=== PATIENT | female | born 2000 | race Hispanic/Latino ===

== ENCOUNTER 2019-04-30 02:08 | Inpatient (IN) | payer OTHER ==
[2019-04-30] VITALS (34 sets, daily range): BP systolic 108–160; BP diastolic 60–96
[~2019-04-30] VITALS: Ht 157.5 cm; Wt 63.0 kg
[2019-04-30 03:58] LABS: HEMATOCRIT 39.9 % (36.0-47.0); HEMOGLOBIN 13.3 g/dl (12.0-15.5); MEAN CORPUSCULAR HEMOGLOBIN 30.6 pg (27.0-33.0); MEAN CORPUSCULAR HGB CONC 33.3 g/dl (32.0-36.5); MEAN CORPUSCULAR VOLUME 91.9 fl (80.0-96.0); PLATELET COUNT, AUTOMATED 179 10^3/uL (150-450); RED BLOOD COUNT 4.34 10^6/uL (4.00-5.40); WHITE BLOOD COUNT 10.3 10^3/uL (4.0-10.0)
[2019-04-30 04:14] LABS: TOTAL PROTEIN,RANDOM URINE 38.6 MG/DL (0.0-12.0)
[2019-04-30 05:16] LABS: ALT/SGPT 200 U/L (12-78); BILIRUBIN,TOTAL 0.3 MG/DL (0.2-1.0); CREATININE FOR GFR 0.74 MG/DL (0.55-1.30); LDH LACTATE DEHYDROGENASE 379 U/L (84-246)
[2019-04-30] MEDS ORDERED: PENICILLIN G POTASSIUM IV 5 MU in D5W MINI-BAG PLUS 100 ML IV STA (06:49)
[2019-04-30] MEDS ORDERED: LACTATED RINGER'S 1000 ML IV STA (06:49)
[2019-04-30] MEDS ORDERED: OXYTOCIN DRIP 30 UNITS in IV 1 EA IV SCH ×2 (07:00→16:00)
--- NOTE | 2019-04-30 07:27 | HPEPDOC ---
Obstetrical History & Physical General Date of Admission 04/30/19 History of Present Illness Iva is a 18yo with SIUP at 39w4d by lmp c/w 13wk u/s who presented to triage around 0230 with complaint of vaginal bleeding after intercourse. In triage she was noted to have elevated bp's, so pre-E labs were ordered which were abnormal, specifically liver enzymes (AST 267, ALT 200) and urine protein/creatinine (0.44). Her bp normalized in triage and remains normotensive currently, but given the abnormalities of labs and elevated bp on presentation, I am making the diagnosis of pre-eclampsia and proceeding with IOL. She has been having fairly regular ctx but they are not too uncomfortable yet. No LOF. Good movement. No f/c/n/v. No vision changes, headache, RUQ pain or SOB. 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 ABDOMEN: Gravid and non-tender to touch. FETUS: Is vertex (VTX) by sterile vaginal examination (SVE) EXTREMITIES: No edema of BLE Vital Signs/I&O Vital Signs Date Time Temp Pulse Resp B/P (MAP) Pulse Ox O2 Delivery O2 Flow Rate FiO2 04/30/19 05:06 100.0 82 126/75 (92) Laboratory Data 24H LABS Laboratory Tests 2 04/30/19 03:21: Urine Random Creatinine 86.0, Urine Random Total Protein 38.6H 04/30/19 03:38: Urine Color YELLOW, Urine Appearance HAZY, Urine pH 6.0, Urine Specific [place] 1.016, Urine Protein NEGATIVE, Urine Glucose (UA) NEGATIVE, Urine Ketones NEGATIVE, Urine Blood 1+H, Urine Nitrite NEGATIVE, Urine Bilirubin NEGATIVE, Urine Urobilinogen 0.2, Urine Leukocyte Esterase 3+H, Urine WBC (Auto) 4H, Urine RBC (Auto) 11H, Urine Hyaline Casts (Auto) 0, Urine Bacteria (Auto) 1+H, Urine Squamous Epithelial Cells 4, Urine Sperm (Auto) 04/30/19 03:46: Nucleated Red Blood Cells % (auto) 0.0, Uric Acid 6.0, Total Bilirubin 0.3, Aspartate Amino Transf (AST/SGOT) 267H, Alanine Aminotransferase (ALT/SGPT) 200H, Lactate Dehydrogenase 379H CBC/BMP Laboratory Tests 04/30/19 03:46 Microbiology Microbiology 04/30/19 Urine Culture, Received Pending Pertinent Laboratoy Data Blood Type: O+ RBC Antibody Screen: Negative HIV: Negative Hepatitis B: Negative Hepatitis C: Unknown Rapid Plasma Reagin: Nonreactive Rubella: Nonreactive Varicella: Nonreactive Chlamydia/Gonorrhea: Positive (with negative test of cure ) Group B Streptococcus: Positive Cystic Fibrosis: Negative Glucose Tolerance Test: 95 Anatomy Ultrasound Ultrasound Date: Dec 28, 2018 Placenta Location: Anterior Normal Anatomy: Yes Placenta Previa: No Steroid Therapy Steroid Therapy: No Vaginal Examination Dilation: 3 cm Effacement: 80% Station: -1 Cervical Consistency: Soft Cervical Position: Posterior (very) Presentation: Cephalic presentation Assessment Heart Rate (FHR): 140 Variability: Moderate Accelerations: Positive Decelerations: None Tocometer Contractions: Yes Frequency: regular, every 2-5 min. Duration: greater than 60 seconds Strength: palpated as mild Assessment/Plan Assessment Iva is a 18yo with SIUP at 39w4d by lmp c/w 13wk u/s who presented to [facility] around 0230 with complaint of vaginal bleeding after intercourse. In triage she was noted to have elevated bp's, so pre-E labs were ordered which were abnormal, specifically liver enzymes (AST 267, ALT 200) and urine protein/creatinine (0.44). Her bp normalized in triage and remains normotensive currently, but given the abnormalities of labs and elevated bp on presentation, I am making the diagnosis of pre-eclampsia and proceeding with IOL. SCE 380/-1 but cervix is very posterior. Ctx q3 min. Cat I FHRT. PMhx/ course significant for: Anemia taking iron, +chlamydia at new ob visit with negative test of cure, transfer in at 20wk, GBS positive, varicella non-immune and rubella negative ab Plan Admit and orient. Can Labeler and consent. Diet: clear liquids Group B Streptococcus (GBS) positive: PCN per protocol IVF 500ml LR bolus then 125ml/hr Counseled on Pitocin and induction of labor (IOL). Anticipate normal spontaneous delivery () Candidate for epidural in active labor MD Phil West Katrina D MD Apr 30, 2019 06:58
[2019-04-30] MEDS: LR 1,000 ML IV SCH ×3 (08:03→21:21)
--- NOTE | 2019-04-30 08:47 | IPNPDOC ---
Text Note Date of Service The patient was seen on 04/30/19. NOTE Accepting care of Ms. Hammond this morning. She's a 18 yo at 39+4 weeks gestation who presented to L&D early this morning with vaginal bleeding after intercourse and intermittent contractions. She was found to be hypertensive initially and toxemia labs were obtained. A ST/ALT were both >200 and pr:cr was 0.44. Remainder of blood work was unremarkable. She was admitted for an IOL for pre eclampsia. Cervix was favorable and so pitocin was ordered. She was started on PCN for being GBS positive. Blood pressures have normalized. FHR tracing - Cat I with moderate variability, +accels, no decels. Ctx regular. Continue PCN and pitocin. Will repeat toxemia labs at 1200. Pending results and pending blood pressures, may consider starting IV magnesium for maternal seizure prophylaxis. Will re check cervix in 4-6 hours or sooner as needed. Jesusita Han DO VS,Hetal, I+O VS, Hetal, I+O Laboratory Tests 04/30/19 03:46 Vital Signs Date Time Temp Pulse Resp B/P (MAP) Pulse Ox O2 Delivery O2 Flow Rate FiO2 04/30/19 05:06 100.0 82 126/75 (92) JESUSITA HAN DO Apr 30, 2019 08:47
[2019-04-30] MEDS ORDERED: PENICILLIN G POTASSIUM IV 2.5 MU in IV 1 EA IV SCH (12:00)
[2019-04-30 12:26] LABS: HEMATOCRIT 36.1 % (36.0-47.0); MEAN CORPUSCULAR HEMOGLOBIN 30.4 pg (27.0-33.0); MEAN CORPUSCULAR HGB CONC 33.2 g/dl (32.0-36.5); MEAN CORPUSCULAR VOLUME 91.4 fl (80.0-96.0); RED BLOOD COUNT 3.95 10^6/uL (4.00-5.40); WHITE BLOOD COUNT 9.9 10^3/uL (4.0-10.0)
[2019-04-30 12:52] LABS: ALBUMIN 2.7 GM/DL (3.2-5.2); ALT/SGPT 585 U/L (12-78); BILIRUBIN,TOTAL 0.8 MG/DL (0.2-1.0); BLOOD UREA NITROGEN 9 MG/DL (7-18); CALCIUM LEVEL 8.7 MG/DL (8.5-10.1); CARBON DIOXIDE LEVEL 21 MEQ/L (21-32); CHLORIDE LEVEL 109 MEQ/L (98-107); CREATININE FOR GFR 0.74 MG/DL (0.55-1.30); GLUCOSE, FASTING 97 MG/DL (70-100); POTASSIUM SERUM 3.7 MEQ/L (3.5-5.1); SODIUM LEVEL 142 MEQ/L (136-145); TOTAL PROTEIN 5.7 GM/DL (6.4-8.2)
[2019-04-30 12:53] LABS: PLATELET COUNT, AUTOMATED 85 10^3/uL (150-450)
[2019-04-30] MEDS ORDERED: SLF 3 ML SYR IV PRN (13:00)
[2019-04-30] MEDS ORDERED: MAGNESIUM *L&D* 4 GM/100 ML BAG (40MG/ML) (J3475) As Ordered ONE (13:33)
[2019-04-30] MEDS ORDERED: MAGNESIUM SULFATE 4% INJ 20GM/500ML (40MG/ML) (J3475) As Ordered ONE ×2 (13:35→16:13)
[2019-04-30] MEDS ORDERED: MAG Sulf (L&D) 4 GM/100 ML 4 GM in IV 1 EA IV ONE (14:00)
[2019-04-30] MEDS: MAG Sulf (OBGYN) 20GM/500ML 20,000 MG in IV 1 EA IV SCH ×2 (14:03→16:30)
[2019-04-30 14:08] LABS: HEMOGLOBIN 12.4 g/dl (12.0-15.5); MEAN CORPUSCULAR HEMOGLOBIN 30.6 pg (27.0-33.0); MEAN CORPUSCULAR HGB CONC 33.5 g/dl (32.0-36.5); MEAN CORPUSCULAR VOLUME 91.4 fl (80.0-96.0); RED BLOOD COUNT 4.05 10^6/uL (4.00-5.40); WHITE BLOOD COUNT 9.3 10^3/uL (4.0-10.0)
[2019-04-30 14:09] LABS: PLATELET COUNT, AUTOMATED 86 10^3/uL (150-450)
[2019-04-30] MEDS ORDERED: BICITRA 30ML SOLN UDC As Ordered ONE (14:28)
[2019-04-30] MEDS ORDERED: ceFAZolin 2 GM/D5W 50 ML IV BAG (J0690 PER 500MG) As Ordered ONE (14:28)
[2019-04-30] MEDS ORDERED: AZITHROMYCIN INJ 500MG VIAL (J0456) As Ordered ONE (14:29)
[2019-04-30] MEDS ORDERED: LIDOCAINE 2% INJ 100 MG/5 ML SDV (FOR ANES.) As Ordered ONE (14:41)
[2019-04-30] MEDS ORDERED: MIDAZOLAM INJ 2 MG/2 ML VIAL (J2250) As Ordered ONE (14:41)
[2019-04-30] MEDS ORDERED: PROPOFOL 200 MG/20 ML VIAL As Ordered ONE (14:41)
[2019-04-30] MEDS ORDERED: fentaNYL 100 MCG/2 ML INJECTION (J3010) As Ordered ONE ×2 (14:41→16:13)
[2019-04-30] MEDS ORDERED: OXYTOCIN 30 UNITS IN 0.9% NaCl 500ML IV BAG (J2590) As Ordered ONE ×2 (14:42→15:40)
[2019-04-30] MEDS ORDERED: SUCCINYLCHOLINE 100 MG/5 ML SYRINGE (J0330) As Ordered ONE (14:42)
[2019-04-30] MEDS ORDERED: ROCURONIUM BROMIDE 50 MG/5 ML VIAL As Ordered ONE (14:42)
--- NOTE | 2019-04-30 14:59 | IPNPDOC ---
Text Note Date of Service The patient was seen on 04/30/19. NOTE I repeated bloodwork at ~1200. Results below. I then went to evaluate Ms. Hammond. BPs remain normal. Ms. Hammond had a headache earlier that resolved. She denies any RUQ pain, visual changes, epigastric pain, or SOB. She denies any contraction pain whatsoever. Chaperoned by L&D RN Abdomen - Gravid, nontender to palpation in RUQ. Cervix - Difficult exam. Cervix extremely posterior and Ms. Hammond is very sensitive to an exam. 2-3/75/-2. Attempted to perform AROM but this was impossible secondary to extremely posterior cervix. Pitocin got up to 14mU. Contractions were regular. FHR tracing Cat I with moderate variability, +accels, no decels. Labs (most recent results 1200 today) CBC - 10.3>13.3/39.9<179 at 0345 this AM---> 9.9>12.0/36.1<85 at 1200 today AST/ALT - 267/200 at 0345 this AM --> 1021/585 at 1200 today Cr - 0.74 --> 0.74 Diagnosis of HELLP Syndrome made based on precipitous drop in platelets to <100,000 and continued climbing of AST/ALT in the setting of pre eclampsia with severe features. IV magnesium has been initiated for maternal seizure prophylaxis. I discussed HELLP Syndrome in detail with Ms. Hammond and her . I discussed with them that the cure for HELLP Syndrome is delivery. Her cervix on admission was favorable, and she has been on pitocin for the last 6 hours. However, repeat exam revealed no cervical change. I was unable to perform AROM secondary to Ms. Hammond's extremely posterior cervix. Ms. Hammond was ultimately undecided on whether or not to receive an epidural in labor, however after discussing the case with anesthesia, they would be unwilling to place an epidural or even a spinal given her platelet level and diagnosis. I discussed these concerns with Ms. Hammond and her . Given her diagnosis and likely prolonged continued IOL, I offered her a section for delivery now. I discussed all risks and benefits of section vs continued IOL in detail. I also informed Ms. Hammond that she will require general anesthesia for a c section no matter what at this point if a c section is what ultimately happens. After extensive counseling and deliberation between Ms. Hammond and her , she has opted for section now. We reviewed all risks of surgery to include, but not limited to, bleeding requiring blood transfusion (including platelet transfusion possibility), risk of infection, risk of injury to bowel, bladder, other structures which could require additional surgery, risk of needing a hysterectomy because of life threatening bleeding, increased risk of requiring a c section for any future pregnancies, and even risk of and/or maternal . She verbalized understanding of these risks and elected to proceed. Will order ancef and azithromycin for surgical infection prophylaxis. Will proceed to the OR when team assembled. All patient and questions answered. Jesusita Han DO VS,Hetal, I+O VS, Hetal, I+O Laboratory Tests 04/30/19 03:46 04/30/19 11:59 04/30/19 13:55 Vital Signs Date Time Temp Pulse Resp B/P (MAP) Pulse Ox O2 Delivery O2 Flow Rate FiO2 04/30/19 12:12 99.0 70 16 135/83 (100) JESUSITA HAN DO Apr 30, 2019 14:59
[2019-04-30] MEDS ORDERED: ceFAZolin SOD 2 GM in IV 1 EA IV ONE (15:00)
[2019-04-30] MEDS ORDERED: AZITHROMYCIN INJ 500 MG, VIAL MATE ADAPTER 1 EACH in D5W 250 ML IV ONE (15:00)
[2019-04-30] MEDS ORDERED: METHYLERGONOVINE MALEATE 0.2 MG/ML VIAL (J2210) IM STA (15:13)
[2019-04-30] MEDS ORDERED: ONDANSETRON 4MG/2ML VIAL (J2405) As Ordered ONE (15:14)
[2019-04-30] MEDS ORDERED: dexameTHASONE 4 MG/ML 1ML VIAL (J1100) As Ordered ONE (15:14)
[2019-04-30] MEDS ORDERED: PHENYLephrine HCL 500 MCG/5 ML (100MCG/ML) SYRINGE (J2370) As Ordered ONE (15:17)
[2019-04-30] MEDS ORDERED: MORPHINE PRES-FREE INJ 10 MG/10 ML VIAL (J2274) As Ordered ONE (15:19)
[2019-04-30] MEDS ORDERED: miSOPROStol 200 MCG TAB (S0191) PR ONE (15:43)
[2019-04-30] MEDS ORDERED: PROMETHAZINE 25 MG TAB PO PRN (16:00)
[2019-04-30] MEDS ORDERED: oxyCODONE 5MG TAB PO PRN (16:00)
[2019-04-30] MEDS ORDERED: MEASLES,MUMPS,RUBELLA VACCINE INJ (MMR-II) (90707) SC SCH (16:00)
[2019-04-30] MEDS ORDERED: RHOGAM 300 MCG (1500 IU) INJ (J2790) IM SCH ×2 (16:00→23:45)
[2019-04-30] MEDS ORDERED: MORPHINE 2 MG/ML 1ML VIAL (J2270) IV PRN (16:15)
[2019-04-30] MEDS ORDERED: oxyCODONE 5MG TAB As Ordered ONE ×2 (16:43→17:33)
[2019-04-30] MEDS: oxyCODONE 5MG TAB PO PRN ×2 (16:45→17:34)
[2019-04-30] MEDS ORDERED: KETOROLAC 30 MG/ML VIAL (J1885) IV SCH (18:00)
[2019-04-30] MEDS ORDERED: PROMETHAZINE INJ 25 MG/ML VIAL (J2550) IV PRN (21:15)
[2019-04-30 22:10] LABS: HEMATOCRIT 31.8 % (36.0-47.0); HEMOGLOBIN 10.6 g/dl (12.0-15.5); MEAN CORPUSCULAR HEMOGLOBIN 30.5 pg (27.0-33.0); MEAN CORPUSCULAR HGB CONC 33.3 g/dl (32.0-36.5); MEAN CORPUSCULAR VOLUME 91.6 fl (80.0-96.0); RED BLOOD COUNT 3.47 10^6/uL (4.00-5.40); WHITE BLOOD COUNT 14.2 10^3/uL (4.0-10.0)
[2019-04-30 22:19] LABS: PLATELET COUNT, AUTOMATED 97 10^3/uL (150-450)
[2019-04-30 22:24] LABS: ALBUMIN 2.4 GM/DL (3.2-5.2); ALT/SGPT 402 U/L (12-78); BILIRUBIN,TOTAL 0.4 MG/DL (0.2-1.0); BLOOD UREA NITROGEN 7 MG/DL (7-18); CALCIUM LEVEL 7.3 MG/DL (8.5-10.1); CARBON DIOXIDE LEVEL 23 MEQ/L (21-32); CHLORIDE LEVEL 106 MEQ/L (98-107); CREATININE FOR GFR 0.63 MG/DL (0.55-1.30); GLUCOSE, FASTING 90 MG/DL (70-100); LDH LACTATE DEHYDROGENASE 424 U/L (84-246); SODIUM LEVEL 137 MEQ/L (136-145); TOTAL PROTEIN 5.6 GM/DL (6.4-8.2)
[2019-04-30 22:43] LABS: INR 1.22; PROTHROMBIN TIME 15.1 SECONDS (11.8-14.0)
[2019-04-30 22:44] LABS: PARTIAL THROMBOPLASTIN TIME 31.4 SECONDS (25.0-38.4)
[2019-05-01] VITALS (32 sets, daily range): BP systolic 100–137; BP diastolic 56–87
[2019-05-01] MEDS: MAG Sulf (OBGYN) 20GM/500ML 20,000 MG in IV 1 EA IV SCH (02:32)
[2019-05-01 04:38] LABS: HEMATOCRIT 28.2 % (36.0-47.0); HEMOGLOBIN 9.3 g/dl (12.0-15.5); MEAN CORPUSCULAR HEMOGLOBIN 30.3 pg (27.0-33.0); MEAN CORPUSCULAR VOLUME 91.9 fl (80.0-96.0); RED BLOOD COUNT 3.07 10^6/uL (4.00-5.40); WHITE BLOOD COUNT 12.8 10^3/uL (4.0-10.0)
[2019-05-01 04:39] LABS: PLATELET COUNT, AUTOMATED 92 10^3/uL (150-450)
[2019-05-01 05:09] LABS: ALBUMIN 2.2 GM/DL (3.2-5.2); ALT/SGPT 314 U/L (12-78); BILIRUBIN,TOTAL 0.4 MG/DL (0.2-1.0); BLOOD UREA NITROGEN 7 MG/DL (7-18); CALCIUM LEVEL 6.6 MG/DL (8.5-10.1); CARBON DIOXIDE LEVEL 24 MEQ/L (21-32); CHLORIDE LEVEL 104 MEQ/L (98-107); CREATININE FOR GFR 0.61 MG/DL (0.55-1.30); GLUCOSE, FASTING 88 MG/DL (70-100); MAGNESIUM LEVEL 7.1 MG/DL (1.8-2.4); SODIUM LEVEL 136 MEQ/L (136-145); TOTAL PROTEIN 4.9 GM/DL (6.4-8.2)
[2019-05-01] MEDS: KETOROLAC 30 MG/ML VIAL (J1885) IV SCH ×3 (05:39→12:27)
[2019-05-01] MEDS: oxyCODONE 5MG TAB PO PRN ×2 (06:04→18:58)
--- NOTE | 2019-05-01 06:17 | IPNPDOC ---
Progress Note Date of Service: May 01, 2019 Progress Note Iva is a 18 yo G1 now P1 who is POD#1 s/p uncomplicated PLTCS at ~1500 on 30Apr2019 under general anesthesia for HELLP Syndrome, remote from delivery. She had tachycardia as high as the 130s and a mild fever to 100.6 a few hours after delivery but both of these issues have since improved. She has been receiving IV magnesium. No acute events overnight. Iva overall reports feeling well, just tired. Her abdominal incision is sore but not extremely. She had one episode of vomiting shortly after delivery but she has denied any nausea or vomiting since then. She also denies any headaches, RUQ pain, visual changes, or SOB. Vitals - VSS, HR 90s-110s, normotensive, afebrile since temp of 100.6 at ~1830 on 30Apr2019 General - AAOX3, laying in bed, NAD Abdomen - Soft, nondistended. Bandage in place over incision. Dry. Extremities - mild edema UO - Excellent, >150ml/hr over last 6 hours Labs: [id number] at 2140 ---> [id number] at 0430 BMP: 137/4.0--106/23--7/0.63<90 --> 136/4.0--104/24--7/0.61<88 Mag level: 5.6 ---> 7.1 CBC: 14.2>10.6/31.8<97 ---> 12.8>9.3/28.2<92 Fibrinogen: 292 INR: 1.22 Ms. Hammond remains stable and is making an appropriate / postoperative recovery. Platelets stabilizing, though it wouldn't be unexpected for them to livan at 24-28 hours . I also expect her initial tachycardia will continue to improve as her body equilibrates and adapts to the major fluid shifts. H/H may continue to drop as well because she was likely hemoconcentrated from her disease process. UO is excellent now and there are no signs/symptoms of acute bleeding. Plan to continue magnesium for now. Also encourage IS use. Regular diet this morning. Continue analgesic regimen. All patient questions answered. Alden Han, DO VS, I&O, 24H, Hetal Vital Signs/I&O Vital Signs Date Time Temp Pulse Resp B/P (MAP) Pulse Ox O2 Delivery O2 Flow Rate FiO2 05/01/19 02:54 110 16 112/72 (85) 05/01/19 02:24 98.6 04/30/19 17:34 96 Nasal Cannula 2.0 I&O- Last 24 Hours up to 6 AM 05/01/19 06:00 Intake Total 4587.8 ml Output Total 3457 ml Balance 1130.8 ml Laboratory Data 24H LABS Laboratory Tests 2 04/30/19 11:59: Nucleated Red Blood Cells % (auto) 0.0, Immature Platelet Fraction 5.6, Anion Gap 12, Calcium Level 8.7, Total Bilirubin 0.8#, Aspartate Amino Transf (AST/SGOT) 1021H, Alanine Aminotransferase (ALT/SGPT) 585H, Alkaline Phosphatase 201H, Total Protein 5.7L, Albumin 2.7L, Albumin/Globulin Ratio 0.90L 04/30/19 13:55: Nucleated Red Blood Cells % (auto) 0.0 04/30/19 21:41: Nucleated Red Blood Cells % (auto) 0.0, Anion Gap 8, Calcium Level 7.3#L, Total Bilirubin 0.4, Aspartate Amino Transf (AST/SGOT) 482H, Alanine Aminotransferase (ALT/SGPT) 402H, Alkaline Phosphatase 168H, Total Protein 5.6L, Albumin 2.4L, Albumin/Globulin Ratio 0.75L, Prothrombin Time 15.1H, Prothromb Time International Ratio 1.22, Activated Partial Thromboplast Time 31.4, Fibrinogen 292, Magnesium Level 5.6*H, Lactate Dehydrogenase 424H 05/01/19 04:28: Nucleated Red Blood Cells % (auto) 0.0, Anion Gap 8, Calcium Level 6.6L, Total Bilirubin 0.4, Aspartate Amino Transf (AST/SGOT) 299H, Alanine Aminotransferase (ALT/SGPT) 314H, Alkaline Phosphatase 143H, Total Protein 4.9L, Albumin 2.2L, Albumin/Globulin Ratio 0.81L, Magnesium Level 7.1*H CBC/BMP Laboratory Tests 04/30/19 11:59 04/30/19 13:55 04/30/19 21:41 05/01/19 04:28 Microbiology Microbiology 04/30/19 Urine Culture, Received Pending ALDEN HAN DO May 01, 2019 06:17
[2019-05-01] MEDS: LR 1,000 ML IV SCH (09:08)
[2019-05-01] MEDS: SLF 3 ML SYR IV SCH (09:09)
[2019-05-01] MEDS: PRENATAL VITAMINS CHEWABLE TABLET PO SCH (09:14)
[2019-05-01 10:20] LABS: HEMOGLOBIN 8.9 g/dl (12.0-15.5); MEAN CORPUSCULAR HEMOGLOBIN 30.3 pg (27.0-33.0); MEAN CORPUSCULAR VOLUME 91.8 fl (80.0-96.0); RED BLOOD COUNT 2.94 10^6/uL (4.00-5.40); WHITE BLOOD COUNT 11.4 10^3/uL (4.0-10.0)
[2019-05-01 10:24] LABS: PLATELET COUNT, AUTOMATED 96 10^3/uL (150-450)
[2019-05-01 10:53] LABS: ALBUMIN 2.2 GM/DL (3.2-5.2); ALT/SGPT 287 U/L (12-78); BILIRUBIN,TOTAL 0.5 MG/DL (0.2-1.0); BLOOD UREA NITROGEN 7 MG/DL (7-18); CALCIUM LEVEL 6.7 MG/DL (8.5-10.1); CARBON DIOXIDE LEVEL 27 MEQ/L (21-32); CHLORIDE LEVEL 103 MEQ/L (98-107); CREATININE FOR GFR 0.68 MG/DL (0.55-1.30); GLUCOSE, FASTING 73 MG/DL (70-100); MAGNESIUM LEVEL 5.9 MG/DL (1.8-2.4); SODIUM LEVEL 137 MEQ/L (136-145); TOTAL PROTEIN 4.6 GM/DL (6.4-8.2)
[2019-05-01] MEDS ORDERED: BICITRA 30ML SOLN UDC PO ONE (15:00)
[2019-05-01 16:07] LABS: HEMATOCRIT 25.8 % (36.0-47.0); HEMOGLOBIN 8.8 g/dl (12.0-15.5); MEAN CORPUSCULAR HGB CONC 34.1 g/dl (32.0-36.5); MEAN CORPUSCULAR VOLUME 90.8 fl (80.0-96.0); PLATELET COUNT, AUTOMATED 105 10^3/uL (150-450); RED BLOOD COUNT 2.84 10^6/uL (4.00-5.40); WHITE BLOOD COUNT 10.9 10^3/uL (4.0-10.0)
[2019-05-01 16:41] LABS: ALBUMIN 2.1 GM/DL (3.2-5.2); ALT/SGPT 249 U/L (12-78); BILIRUBIN,TOTAL 0.2 MG/DL (0.2-1.0); BLOOD UREA NITROGEN 8 MG/DL (7-18); CALCIUM LEVEL 6.7 MG/DL (8.5-10.1); CARBON DIOXIDE LEVEL 26 MEQ/L (21-32); CHLORIDE LEVEL 107 MEQ/L (98-107); GLUCOSE, FASTING 102 MG/DL (70-100); MAGNESIUM LEVEL 4.7 MG/DL (1.8-2.4); POTASSIUM SERUM 3.7 MEQ/L (3.5-5.1); SODIUM LEVEL 139 MEQ/L (136-145); TOTAL PROTEIN 4.9 GM/DL (6.4-8.2)
--- NOTE | 2019-05-01 18:02 | RO ---
DATE OF PROCEDURE: 04/30/2019 PREPROCEDURE DIAGNOSIS: Hemolysis, elevated liver enzymes, low platelet count (HELLP) syndrome, remote from delivery. POSTPROCEDURE DIAGNOSES: Hemolysis, elevated liver enzymes, low platelet count (HELLP) syndrome, remote from delivery. PROCEDURE: Primary low section. SURGEON: Dr. Alden Han PROFESSOR OF [employer]UDIES: Dr. Yumi Delaney ANESTHESIA: General. FLUIDS: 1100 mL of lactated Ringer's. URINE OUTPUT: 200 mL via Sylvester catheter. ESTIMATED BLOOD LOSS: 600 mL. COMPLICATIONS: None. ANTIBIOTICS: 2 grams of Ancef and 500 mg of azithromycin. OPERATIVE FINDINGS: Viable female infant found and delivered in cephalic presentation, clear amniotic fluid. scores 9 and 9. weight 2970 grams or 5 pounds 9 ounces. DETAILED PROCEDURE DESCRIPTION: The risks, benefits, indications, and alternatives of the procedure were reviewed with the patient and informed consent was obtained. The patient was taken to the operating room where she was then prepped and draped in the usual sterile fashion. A surgical time-out was then performed in which the patient's identify and planned procedure were verified with the operative team. After draping had been performed and the surgeon was in appropriate position, general anesthesia was induced. Rapid entry was performed via a Pfannenstiel skin incision with the scalpel. This was carried through the fascia. The fascia was then extended superiorly, inferiorly and laterally via blunt dissection. The peritoneum was identified and entered digitally. The peritoneal incision was then extended horizontally and superiorly and there was good visualization of the bladder. A bladder blade was then inserted into the abdomen. A bladder flap was not created. The lower uterine segment was then incised in a transverse fashion with the scalpel. The uterine incision was then extended manually. Clear fluid was noted upon entry into the uterus. The was found and delivered in a cephalic presentation without difficulty. The infant's nose and mouth were suctioned with a bulb syringe. The cord was then immediately clamped and cut. The infant was then taken to the awaiting pediatricians. The placenta was then removed manually and the uterus was exteriorized and cleared of all clots and debris. The uterine incision was then repaired with #0 Monocryl suture in a running locked fashion. A second layer of #0 Monocryl was then used to imbricate the hysterotomy in a vertical fashion. Inspection revealed excellent hemostasis. The uterus was boggy during the repair and 0.2 mg of IM Methergine was administered. The posterior cul-de-sac was then irrigated to good effect. The uterus was then returned to the abdomen, and the hysterotomy was again inspected and found to be hemostatic. The paracolic gutters were then inspected and cleared of all clots and debris. The bladder blade was removed from the abdomen. The peritoneum was then closed in a running layer of #3-0 Vicryl suture. The fascia was then closed with #0 Vicryl suture in a running fashion. The subcutaneous fat was then closed with #3-0 Vicryl suture in a running fashion. The skin was then closed with #4-0 Monocryl suture in a subcuticular fashion. This incision was then dressed with Steri-Strips and a pressure dressing was applied. At the completion of the case, a bimanual exam was performed which revealed a good uterine tone and minimal vaginal bleeding. 1000 mcg of Cytotec was then placed per rectum. Uterine tone remained good. The patient tolerated the procedure well. Sponge, lap, and needle counts were correct times three. The patient was taken to the recovery room in stable condition. BELLA
[2019-05-01] MEDS: IBUPROFEN 800 MG TAB PO SCH (20:21)
[2019-05-02] MEDS: SLF 3 ML SYR IV SCH ×4 (01:59→22:31)
[2019-05-02] MEDS: IBUPROFEN 800 MG TAB PO SCH ×3 (04:21→20:05)
[2019-05-02 05:59] VITALS: BP 111/57
[2019-05-02 07:07] LABS: HEMATOCRIT 24.9 % (36.0-47.0); HEMOGLOBIN 8.3 g/dl (12.0-15.5); MEAN CORPUSCULAR HEMOGLOBIN 31.2 pg (27.0-33.0); MEAN CORPUSCULAR HGB CONC 33.3 g/dl (32.0-36.5); MEAN CORPUSCULAR VOLUME 93.6 fl (80.0-96.0); PLATELET COUNT, AUTOMATED 106 10^3/uL (150-450); RED BLOOD COUNT 2.66 10^6/uL (4.00-5.40); WHITE BLOOD COUNT 10.7 10^3/uL (4.0-10.0)
[2019-05-02 07:41] LABS: ALBUMIN 2.1 GM/DL (3.2-5.2); ALT/SGPT 181 U/L (12-78); BILIRUBIN,TOTAL 0.4 MG/DL (0.2-1.0); BLOOD UREA NITROGEN 7 MG/DL (7-18); CALCIUM LEVEL 7.8 MG/DL (8.5-10.1); CARBON DIOXIDE LEVEL 26 MEQ/L (21-32); CHLORIDE LEVEL 108 MEQ/L (98-107); CREATININE FOR GFR 0.57 MG/DL (0.55-1.30); GLUCOSE, FASTING 73 MG/DL (70-100); SODIUM LEVEL 140 MEQ/L (136-145); TOTAL PROTEIN 4.9 GM/DL (6.4-8.2)
[2019-05-02 10:00] VITALS: BP 124/67
[2019-05-02] MEDS: PRENATAL VITAMINS CHEWABLE TABLET PO SCH (10:22)
[2019-05-02 14:00] VITALS: BP 134/76
[2019-05-02 18:00] VITALS: BP 115/81
--- NOTE | 2019-05-02 18:16 | IPN ---
DATE: 05/02/2019 This lady is a 18-year-old 1, now para 1 who was admitted with a history of vaginal bleeding and an elevated blood pressure. She had preeclampsia workup and was diagnosed as having hemolysis, elevated liver enzymes and low platelet count (HELLP) syndrome. She had a primary section by general anesthetic for a live female weighing 5 pounds, 9 ounces, 2970 grams, scores of 9 and 9 at one and five minutes respectively. Postoperatively, she was on magnesium sulfate, came off after 24 hours of monitoring. Her magnesium levels and monitoring her chemistry, her liver enzymes are coming down slowly after 48 hours, and her hemoglobin is 8.3, hematocrit 24.9 and she is asymptomatic. Her platelets are slowly rising. They were 106 this morning. She is feeling well, voiding, passing gas, is mobilized, looks pale but otherwise is unremarkable. Her blood pressure is 111/57, pulse is 90, respirations are 16 and temperature is 98.2. In reviewing her earlier blood pressures, the only significant one that she had which was mid range was on 05/01/2019 at 135/81. Prior to that, I do not see any significant severe range blood pressures. Our plan of management is to repeat her blood work tomorrow morning. Pending stabilization of her blood work and physical examination and the patient's symptomatology, she will be discharged to followup in two weeks for an incision check at [facility] ([facility]) and six-week check. 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 We spent 20 minutes. All questions were answered.
[2019-05-02 22:00] VITALS: BP 128/81
[2019-05-03 02:08] VITALS: BP 121/77
[2019-05-03] MEDS: IBUPROFEN 800 MG TAB PO SCH (04:14)
[2019-05-03] MEDS: SLF 3 ML SYR IV SCH (06:00)
[2019-05-03 06:10] VITALS: BP 110/60
[2019-05-03 06:19] LABS: HEMATOCRIT 25.1 % (36.0-47.0); HEMOGLOBIN 8.2 g/dl (12.0-15.5); MEAN CORPUSCULAR HEMOGLOBIN 30.7 pg (27.0-33.0); MEAN CORPUSCULAR HGB CONC 32.7 g/dl (32.0-36.5); PLATELET COUNT, AUTOMATED 119 10^3/uL (150-450); RED BLOOD COUNT 2.67 10^6/uL (4.00-5.40); WHITE BLOOD COUNT 9.8 10^3/uL (4.0-10.0)
[2019-05-03] MEDS ORDERED: IBUP80TA PO (06:29)
[2019-05-03] MEDS ORDERED: OXYC-517 PO (06:29)
[2019-05-03 06:46] LABS: ALBUMIN 2.2 GM/DL (3.2-5.2); ALT/SGPT 139 U/L (12-78); BILIRUBIN,TOTAL 0.3 MG/DL (0.2-1.0); BLOOD UREA NITROGEN 6 MG/DL (7-18); CALCIUM LEVEL 8.2 MG/DL (8.5-10.1); CARBON DIOXIDE LEVEL 26 MEQ/L (21-32); CHLORIDE LEVEL 108 MEQ/L (98-107); CREATININE FOR GFR 0.48 MG/DL (0.55-1.30); GLUCOSE, FASTING 65 MG/DL (70-100); POTASSIUM SERUM 3.9 MEQ/L (3.5-5.1); SODIUM LEVEL 141 MEQ/L (136-145); TOTAL PROTEIN 4.8 GM/DL (6.4-8.2)
--- NOTE | 2019-05-03 07:25 | DS.PDOC ---
Discharge Summary General Date of Admission Apr 30, 2019 at 06:56 Date of Discharge May 03, 2019 Discharge Summary HOSPITAL COURSE: Ms. Hammond is a 18 yo G1 now P1 who underwent an uncomplicated PLTCS under general anesthesia on 30Apr2019 for HELLP Syndrome, remote from delivery. She was initially admitted for an IOL for pre eclampsia. She then developed HELLP Syndrome by laboratory criteria during her induction process. She was remote from delivery at that time and opted to proceed with section. The c section was uncomplicated, though it had to be performed under general anesthesia due to her low platelet level. She received 24 hours of IV magnesium. Her platelets and AST/ALT levels significantly improved gradually after delivery. Otherwise her course was unremarkable. On her day of discharge (03May2019) she met all appropriate discharge criteria. She was ambulating, voiding, tolerating a regular diet, passing gas, had minimal lochia, and her pain was well controlled with PO pain medications. DISCHARGE MEDICATIONS: Please see below. ALLERGIES: Please see below. PHYSICAL EXAMINATION ON DISCHARGE: VITAL SIGNS: Please see below. GENERAL: AAOX3, sitting up in bed, NAD, pleasant and conversant CARDIOVASCULAR EXAMINATION: RRR ABDOMINAL EXAMINATION: Soft, non distended. Fundus firm at U-1. No fundal tenderness. Bandage removed from incision. Incision well appearing, clean/dry/intact. Steri strips in place. No tenderness to palpation. EXTREMITIES: Trace edema in lower extremities PSYCHIATRIC EXAMINATION: Affect appropriate LABORATORY DATA: Please see below. ACTIVITY: Pelvic rest for 6 weeks. No strenuous activity or heavy lifting for 6 weeks DIET: Regular DISCHARGE PLAN: Discharge home DISPOSITION: Discharge home on 03May2019. DISCHARGE INSTRUCTIONS: 1. Pelvic rest for 6 weeks 2. No heavy lifting ITEMS TO FOLLOWUP ON ON OUTPATIENT: 1. BP check in the [facility] office on 10May2019 DISCHARGE CONDITION: Stable. TIME SPENT ON DISCHARGE: Greater than 20 minutes. Jesusita Han DO Vital Signs/I&Os Vital Signs Date Time Temp Pulse Resp B/P (MAP) Pulse Ox O2 Delivery O2 Flow Rate FiO2 05/03/19 06:10 97.9 77 18 110/60 (77) 98 05/02/19 22:00 Room Air 04/30/19 17:34 2.0 Laboratory Data Labs 24H Laboratory Tests 2 05/03/19 06:02: Nucleated Red Blood Cells % (auto) 0.0, Anion Gap 7L, Calcium Level 8.2L, Total Bilirubin 0.3, Aspartate Amino Transf (AST/SGOT) 56H, Alanine Aminotransferase (ALT/SGPT) 139H, Alkaline Phosphatase 135H, Total Protein 4.8L, Albumin 2.2L, Albumin/Globulin Ratio 0.85L CBC/BMP Laboratory Tests 05/03/19 06:02 Microbiology Microbiology 04/30/19 Urine Culture - Final, Complete Discharge Medications Scheduled Ibuprofen (Ibuprofen) 800 Mg Tablet, 800 MG PO Q8H Scheduled PRN Oxycodone HCl (Oxycodone HCl) 5 Mg Tablet, 5 MG PO Q6H PRN for MILD/MODERATE PAIN (PS 1-7) Oxycodone HCl (Oxycodone HCl) 5 Mg Tablet, 10 MG PO Q6H PRN for SEVERE PAIN (PS 8-10) Allergies Coded Allergies: No Known Allergies (Unverified , 04/30/19) JESUSITA HAN DO May 03, 2019 07:25
[2019-05-03] MEDS: PRENATAL VITAMINS CHEWABLE TABLET PO SCH (08:20)
--- NOTE | 2019-05-04 18:39 | DSES ---
DATE OF ADMISSION: 04/30/2019 DATE OF DISCHARGE: 05/03/2019 This lady is a 18-year-old 1, now para 1, who was admitted for labor, check found to have some vaginal bleeding and hypertension. Ruled out preeclampsia but had hemolysis, elevated liver enzymes, and low platelet count (HELLP) syndrome. Had a primary section because of being remote from delivery, live- female , 5 pounds 9 ounces, 2970 grams, scores of 9 and 9 at one and five minutes, respectively. Over the last 2 days her chemistries have come down to almost normalized. Her liver functions became almost normalized. Her hemoglobin/hematocrit remained low, but she has been asymptomatic. Her hemoglobin 8.2, hematocrit 25.1, and platelets were 119. On her second day, we discussed phlebitis, cystitis, mastitis, metritis, and cellulitis, diet, exercise, pain management, and perineal, breast, and wound care. Her blood pressure this morning is 110/60, respirations are 18, pulse 97, and temperature is 97.9. The rest of the examination is unremarkable. Normocephalic, atraumatic. Neck: Full range of motion. Pupils equal and reactive to light. Distal pulses symmetric. No evidence of deep vein thrombosis (DVT) pulmonary embolism (PE), or superficial phlebitis. Chest is clear bilaterally to bases. No wheezes or rhonchi. No costovertebral angle (CVA) tenderness. Abdomen soft. Uterus 2 below. Lochia is moderate. Four -quadrant bowel sounds. Incision is clean and dry. No rashes, lesions, or pruritus. No arthralgia or myalgia. No complaint joint pain. No complaint cough, wheezes, shortness of breath, or dyspnea on exertion. No nausea, vomiting, diarrhea, or constipation. No urgency or frequency. She has minimal lochia at the present time. The patient's medication were dispensed at [facility]. Her partner was told to go to [facility] and pick and shovel worker all medications. Make a 2-week incision check at [facility] and a 6-week check. Subsequent to that, her questions were answered, a 20-minute discussion. The patient baby tolerating procedure well.
== END 2019-05-03 10:23 | disposition home or self-care (01) | DRG 773 ==
LOC: M LDO 02:08 → M LDI 06:56 → M OBS 05-01 18:06
PROVIDERS: ADMIT Obstetrics & Gynecology; ATTEND Obstetrics & Gynecology
PROC: 3E033VJ Introduction of Other Hormone into Peripheral Vein, Percutaneous Approach (ICD-10-PCS; 2019-04-30)
PROC: 10D00Z1 Extraction of Products of Conception, Low, Open Approach (ICD-10-PCS; principal; 2019-04-30 15:43)
DX: O14.24 HELLP syndrome, complicating childbirth (principal); Z3A.39 39 weeks gestation of pregnancy; Z37.0 Single live birth; O99.284 Endocrine, nutritional and metabolic diseases complicating childbirth